=== PATIENT | male | born 1955 ===

== ENCOUNTER 2022-04-14 12:18 | Outpatient (CLI) | payer OTHER | END 2022-04-14 12:19 | disposition EMS.NT | LOC: EMS 12:18 | DX: M79.662 Pain in left lower leg (principal); V17.0XXA Pedal cycle driver injured in collision with fixed or stationary object in nontraffic accident, initial encounter; Y93.55 Activity, bike riding; Y92.838 Other recreation area as the place of occurrence of the external cause ==